=== PATIENT | male | born 1930 ===

== ENCOUNTER 2016-10-14 07:51 | Day surgery (SDC) | payer MEDICARE ==
[2016-10-09 14:45] VITALS: RESP 18; BMI 25.7
[2016-10-14] MEDS ORDERED: Midazolam 2 MG/2 ML VIAL ONE (07:55)
[2016-10-14] MEDS ORDERED: Lidocaine 2% Jelly (5 ml) TOP ONE (07:56)
[2016-10-14] MEDS ORDERED: Etomidate 20 mg/10ml Inj IV ONE (07:56)
[2016-10-14] MEDS ORDERED: Lactated Ringer's 1,000 ML IV ONE (08:38)
[2016-10-14] MEDS ORDERED: cefTRIAXone (Rocephin) 1 gm Inj ONE (09:37)
[2016-10-14] MEDS ORDERED: Lactated Ringer's 1,000 ML IV SCH (10:42)
[2016-10-14 12:02] VITALS: BP 167/92; PULSE 69; TEMP 98.3; O2SAT 97
--- NOTE | 2016-10-28 15:53 | OP ---
PROCEDURE DATE: 10/14/2016 PREOPERATIVE DIAGNOSIS: Bladder tumor. POSTOPERATIVE DIAGNOSIS: Bladder tumor. PROCEDURE PERFORMED: Transurethral resection of bladder tumor. The patient was placed on the operating room table in dorsal lithotomy position. The area of the natalie in was draped and prepped in a sterile manner. Using a 24 continuous flow resectoscope, I entered in to the bladder atraumatically. There was a rather significant sized tumor noted on the right floor o f the bladder behind the right ureteral orifice. At this time, using a loop, I was able to enucleate this tumor mass. The specimen was sent for analysis. The base of the tumor was cauterized. Once t his was completely done, the rest of the evaluation of the bladder did not reveal any other presence of tumor. I then removed the cystoscope and the patient was taken from the operating room in good co ndition. Alexandrea Salcedo MD cc: 48 TT: 10/28/2016 15:53:05 sn
--- NOTE | 2016-10-28 18:13 | DS ---
This is a gentleman who came in for elective transurethral resection of a bladder tumor. The patient underwent an uneventful procedure. The tumor was resected completely. The base was cauterized. Th e patient was taken in to recovery and doing well. He will be followed up in my office within the we ek to discuss the pathology report. He was given a prescription for Cipro to be taken twice a day. Alexandrea Salcedo MD cc: 48 TT: 10/28/2016 18:12:10 mn
== END 2016-10-14 13:19 | disposition home or self-care (01) ==
LOC: H.OPSURG 07:51
PROVIDERS: ATTEND Urology
DX: C67.4 Malignant neoplasm of posterior wall of bladder (principal); J44.9 Chronic obstructive pulmonary disease, unspecified; E11.9 Type 2 diabetes mellitus without complications; E78.5 Hyperlipidemia, unspecified; I10 Essential (primary) hypertension; K21.9 Gastro-esophageal reflux disease without esophagitis; N40.0 Benign prostatic hyperplasia without lower urinary tract symptoms; M13.88 Other specified arthritis, other site
CPT/HCPCS: 52234; 82948; 88307; J0696; J2250; J2765; J3010; J7120

== ENCOUNTER 2018-01-26 09:18 | Day surgery (SDC) | payer MEDICARE ==
[2018-01-08 10:23] VITALS: BMI 23.1
[2018-01-26] MEDS ORDERED: cefTRIAXone (Rocephin) 1 gm Inj ONE (10:56)
[2018-01-26] MEDS ORDERED: Lactated Ringer's 1,000 ML IV ONE (11:20)
[2018-01-26] MEDS ORDERED: cefTRIAXone (Rocephin) 1 gm Inj IM ONE (11:25)
[2018-01-26] MEDS ORDERED: HYDROmorphone 1 mg/ml ISec ONE (11:56)
[2018-01-26 13:36] VITALS: RESP 18
[2018-01-26 14:03] VITALS: O2SAT 100
[2018-01-26] MEDS ORDERED: Oxycodone/Acetaminophen 5/325 mg Tab PO ONE ×2 (14:43→14:50)
[2018-01-26 15:53] VITALS: BP 145/84; PULSE 78; TEMP 97.5
--- NOTE | 2018-01-26 23:18 | OP ---
Copied To: Alexandrea Salcedo MD Attending MD: Alexandrea Salcedo MD PROCEDURE DATE: 01/26/2018 PREOPERATIVE DIAGNOSIS: Bladder tumor. POSTOPERATIVE DIAGNOSIS: Bladder tumor. SURGEON: Alexandrea Salcedo MD ANESTHESIA: General. ESTIMATED BLOOD LOSS: Zero. DESCRIPTION OF PROCEDURE: The patient was placed on the operating room table, given general anesthesia, in a dorsal lithotomy position. The area of the groin was draped and prepped in a sterile manner. Using a #24 continuous flow resectoscope, I entered into the bladder atraumatically. I observed the bladder and identified the bladder tumor which was adjacent to the right ureteral orifice. I was able to resect and completely cauterize the immediate surrounding area, and the ureteral orifice was clearly spared from this resection. I evaluated the rest of the bladder for other resemblance of bladder tumor, did not find any. Once this piece was removed and sent for specimen analysis, I removed the instrumentation and inserted a #18 two-way Pope catheter. The initial outflow was clear. The patient was taken from the operating room in good condition. Blood loss was zero. Alexandrea Salcedo MD
== END 2018-01-26 15:50 | disposition home or self-care (01) ==
LOC: H.OPSURG 09:18
PROVIDERS: ATTEND Urology
DX: D49.4 Neoplasm of unspecified behavior of bladder (principal); J44.9 Chronic obstructive pulmonary disease, unspecified; I50.32 Chronic diastolic (congestive) heart failure; E11.9 Type 2 diabetes mellitus without complications; E78.5 Hyperlipidemia, unspecified; I11.0 Hypertensive heart disease with heart failure; K21.9 Gastro-esophageal reflux disease without esophagitis
CPT/HCPCS: 52234; 82948; 88305; J0696; J1170; J3010; J7120